=== PATIENT | male | born 1960 | race African-American/Black ===

== ENCOUNTER 2017-05-09 17:12 | Emergency (ER) | payer BC ==
[~2017-05-09] VITALS: Ht 177.8 cm; Wt 190.5 kg
[~2017-05-09 17:12] MED LIST changes: -ALB18R INH; -IPRA3AMP21 IH; -PRED20TA6 PO
[2017-05-09] MEDS ORDERED: ALBUTEROL/IPRATROPIUM 3 ML NEB NEB ONE ×2 (17:40→19:20)
[2017-05-09] MEDS ORDERED: predniSONE 20 MG TAB PO ONE (18:20)
--- NOTE | 2017-05-09 18:45 | ER Report ---
History and Physical Time Seen By MD: 17:30 Hx. of Stated Complaint: PT HAS COUGH, SPITING UP GREEN SPUTUM, URGENT CARE REPORTED LOW O2 SATS, GAVE PT o2 HPI/ROS CHIEF COMPLAINT: Cough, shortness of breath HISTORY OF PRESENT ILLNESS: Patient is a 57-year-old male who presents the ED with complaint of three-day history of cough and recent shortness of breath last 2 days. He states that he feels like he has the flu and he states that he just can't kick it. He has been taking some ngur-upn-cebulva cough medication with minimal relief. He states that he went into the urgent care today for evaluation and was told that his oxygen saturation was low. He did have a chest x-ray and labs completed which were essentially normal. He he states that he did have an influenza test there that was negative and states that he did have a d-dimer completed that was negative. He has no history of lung or heart issues. Patient has not noted any fever. REVIEW OF SYSTEMS: Constitutional: No fever, no chills. Eyes: No discharge. ENT: No sore throat. Cardiovascular: See history of present illness. No palpitations. Respiratory: See history of present illness. Gastrointestinal: No abdominal pain, no vomiting. Genitourinary: No hematuria. Musculoskeletal: No back pain. Skin: No rashes. Neurological: No headache. Allergies: Coded Allergies: No Known Drug Allergies (Verified , 09/16/09) Home Meds Active Scripts Losartan/Hydrochlorothiazide (LOSARTAN-HCTZ 100-25 MG TAB) 1 Each Tablet, 1 EACH PO QDAY, #90 TAB 4 Refills Prov:ELIF PLASCENCIA MD 02/22/17 Reported Medications Metformin Hcl (METFORMIN HCL ER) 1,000 Mg Tab.er.24, 1 TAB PO QDAY, TAB 09/15/16 Cpap (CPAP HOME) Inha 09/15/16 Tadalafil (CIALIS) 20 Mg Tablet, 20 MG PO PRN 09/15/16 Fish Oil/Dha/Epa (FISH OIL 1,200 MG FISH OIL) Unknown Strength Capsule, PO, CAPSULE 09/15/16 Multivitamin/Iron/Folic Acid (CENTRUM COMPLETE MULTIVIT TAB) Unknown Strength Tablet, PO 09/15/16 Allopurinol (ZYLOPRIM) 300 Mg Tablet, 300 MG PO QDAY, TAB 09/15/16 Reviewed Nurses Notes: Yes Old Medical Records Reviewed: Yes Smoking Status: Never Smoker Hx Substance Use Disorder: No Hx Alcohol Use: Yes (OCC) Constitutional Vital Sign - Last 24 Hours 05/09/17 05/09/17 05/09/17 05/09/17 17:18 17:51 17:51 17:54 Pulse 78 76 80 Resp 22 16 12 B/P (MAP) 125/100 Pulse Ox 82 93 O2 Delivery Room Air Nasal Cannula O2 Flow Rate 2.0 05/09/17 17:54 Pulse Ox 97 O2 Delivery Nasal Cannula O2 Flow Rate 2.0 Physical Exam General Appearance: The patient is alert, has no immediate need for airway protection and no signs of toxicity. Patient appears to be in no acute distress. Eyes: Pupils equal and round no pallor or injection. ENT, Mouth: Mucous membranes are moist. Respiratory: There are some mild intermittent wheezing appreciated bilaterally. No retractions appreciated. Cardiovascular: Regular rate and rhythm. Gastrointestinal: Abdomen is soft and non tender, no masses, bowel sounds normal. Skin: Warm and dry, no rashes. Musculoskeletal: Neck is supple non tender. Extremities are nontender, nonswollen and have full range of motion. DIFFERENTIAL DIAGNOSIS: After history and physical exam differential diagnosis was considered for shortness of breath including but not limited to pulmonary infectious process, COPD, asthma, pulmonary embolus and congestive heart failure. Medical Decision Making Data Points Laboratory Hematology Test 05/09/17 15:54 05/09/17 18:16 Troponin I < 0.012 ng/ml B-Type Natriuretic Peptide 24 pg/ml (0-100) Influenza Virus Type A (PCR) Negative (NEGATIVE) Influenza Virus Type B (PCR) Positive (NEGATIVE) Chemistry Test 05/09/17 15:54 05/09/17 18:16 Troponin I < 0.012 ng/ml B-Type Natriuretic Peptide 24 pg/ml (0-100) Influenza Virus Type A (PCR) Negative (NEGATIVE) Influenza Virus Type B (PCR) Positive (NEGATIVE) EKG/Imaging Imaging Reviewed chest x-ray from [facility] and report. Per radiology, patient has findings that are suggestive of potential COPD and pulmonary artery hypertension. ED Course/Re-evaluation ED Course Reviewed labs were completed urgent care and he has no leukocytosis. He does have a negative d-dimer and has slight elevation of liver enzymes. Will give patient DuoNeb now. Will also check troponin and BNP. He is not having any chest pain right now. Will also give him 60 mg by mouth prednisone. He was was placed on oxygen at urgent care and is currently wearing 2 L on nasal cannula. 05/09/2017 7:11:18 pm - patient was given another DuoNeb treatment. He is feeling much improved after these treatments. Removed him from his oxygen and he is doing well without oxygen on room air at 94% oxygen saturation. His phone and BMP are normal. He was positive for influenza B. Discussed with patient that we will send him home with nebulizer machine and have him use DuoNeb and albuterol inhaler as needed. We'll also place him on a prednisone burst. Advised that he will need to be watching his blood sugar is on his prednisone. Decision to Disposition Date: May 09, 2017 Decision to Disposition Time: 18:45 Depart Departure Latest Vital Signs Vital Signs Date Time Temp Pulse Resp B/P (MAP) Pulse Ox O2 Delivery O2 Flow Rate FiO2 05/09/17 17:54 97 Nasal Cannula 2.0 05/09/17 17:54 80 12 05/09/17 17:18 125/100 Impression: Primary Impression: Influenza B Condition: Improved Disposition: HOME OR SELF-CARE Referrals: RENETTA PHILLIP MD (PCP) New Scripts Prednisone (PREDNISONE) 20 Mg Tablet 20 MG PO BID, #10 TAB Prov: CHRISTIN CARLIN PA-C 05/09/17 Albuterol Sulfate (VENTOLIN HFA) 18 Gm Inh 2 PUFF INH Q4-6H Y for SHORTNESS OF BREATH, #1 INH Prov: CHRISTIN CARLIN PA-C 05/09/17 Ipratropium/Albuterol Sulfate (IPRAT-ALBUT 0.5-3(2.5) MG/3 ML) 3 Ml Ampul.neb 3 ML IH QID Y for prn, #1 BOX Prov: CHRISTIN CARLIN PA-C 05/09/17 Departure Forms: ER Transition Record, Home Oxygen, Nebulizer RX, Durable Medical Equipment-Oxygen: Nebulizer Reason for Use/Diagnosis: influenza B Start Date of the Order: May 09, 2017 Route of Administration (if applicable): Nasal Cannula Duration Units: Weeks ER Prescribing Physician's Name: Adan Carlin NPI Numbers for Local ER MDs: Donna [id number] Medications Reconciliation, Patient Portal Information Patient Instructions: Influenza (ED) Additional Instructions: Stay well-hydrated. Follow-up with primary care provider in 2-3 days. If having any worsening or concerning symptoms may return to the emergency department. CHRISTIN CARLIN PA-C May 09, 2017 18:45
[2017-05-09] MEDS ORDERED: IPRA3AMP21 IH (19:14)
[2017-05-09] MEDS ORDERED: PRED20TA6 PO (19:14)
[2017-05-09] MEDS ORDERED: ALB18R INH (19:14)
[2017-05-09 19:27] VITALS: BP 188/96
[2017-05-09] MEDS ORDERED: ALBUTEROL SULFATE 90 MCG/ACT 8.5 GM HNH INH PRN (19:40)
== END 2017-05-09 19:40 | disposition home or self-care (01) ==
LOC: ER 17:27
DX: J11.1 Influenza due to unidentified influenza virus with other respiratory manifestations (principal)
CPT/HCPCS: 83880; 84484; 87502; 94640; 99283; J7512; J7620

== ENCOUNTER → 2017-05-09 | Outpatient (REF) | payer BC ==
[~2017-05-09] MED LIST: ALB18R INH; ALL300 PO; ALLO-119 PO; AMLO1TAB78 PO; CEP500 PO; CPAP; FISH1CAP15 PO; IPRA3AMP21 IH; LOSA-54 PO; METF10002 PO; MULT-768 PO; PIOG1TAB15 PO; PRED20TA6 PO; TADA20TA33 PO
[2017-05-09 16:25] LABS: PLATELET COUNT, AUTOMATED 128 K/uL (150-450)
== END ==
PROVIDERS: ATTEND Family Medicine
DX: R09.02 Hypoxemia (principal)
CPT/HCPCS: 82040; 82247; 82310; 82374; 82435; 82565; 82947; 84075; 84132; 84155; 84295; 84450; 84460; 84520; 85025; 85379

== ENCOUNTER → 2017-05-14 | Outpatient (CLI) | payer BC ==
[~2017-05-14] MED LIST changes: +ALB18R INH; +AMLO-96 PO; +IPRA3AMP21 IH; +PRED20TA6 PO
--- NOTE | 2017-05-14 15:32 | EKG ---
FACILITY: [facility] PATIENT NAME: ALIX JONES : [id number] MR: [id number] V: [id number] EXAM DATE: ORDERING PHYSICIAN: GONZALEZ JARVIS TECHNOLOGIST: MECHE Test Reason : IRREGULAR RHYTHM Blood Pressure : / mmHG Vent. Rate : 088 BPM Atrial Rate : 088 BPM P-R Int : 180 ms QRS Dur : 110 ms QT Int : 384 ms P-R-T Axes : 069 -63 065 degrees QTc Int : 464 ms Normal sinus rhythm Left axis deviation Abnormal ECG Confirmed by CR MARQUEZ ([id number]) on 05/14/2017 11:24:28 PM Referred By: SIMONA Confirmed By:CR MARQUEZ
--- NOTE | 2017-05-14 15:39 | RADIOLOGY IMAGING REPORT ---
FACILITY: [facility] PATIENT NAME: Cheryl Bee : 1960 MR: [id number] V: [id number] EXAM DATE: ORDERING PHYSICIAN: GONZALEZ JARVIS TECHNOLOGIST: Location: [facility] - [place], [place] Patient: Cheryl Bee : 1960 Visit/Account:[id number] Date of Sevice: 05/14/2017 Chest 2 views: HISTORY: Cough, influenza. COMPARISON: 08/14/2009 FINDINGS: Frontal and lateral chest: Heart size is within normal limits. There is again noted to be p rominence of the main and left and right pulmonary arteries. This can be seen in setting of pulmonary hypertension. Alternatively, dilatation of the main pulmonary arteries can occur with pulmonic steno sis, clinically correlate. There is no infiltrate or pleural effusion. No pneumothorax. There is no e vidence of congestive heart failure. IMPRESSION: 1. No evidence of acute cardiomegaly pulmonary normality. 2. Prominent pulmonary trunk and main pulmonary arteries, this can be seen in the setting of pulmonar y hypertension. Similar findings can be seen with pulmonic stenosis. There is no significant change c ompared to the prior study. Report Dictated By: Leonor Jim MD at 05/14/2017 3:23 PM Report E-Signed By: Leonor Jim MD at 05/14/2017 3:33 PM [id number]
== END ==
LOC: RAD 14:58
PROVIDERS: ATTEND Nurse Practitioner Primary Care
DX: I28.8 Other diseases of pulmonary vessels (principal); R94.31 Abnormal electrocardiogram [ECG] [EKG]
CPT/HCPCS: 71046; 93005

== ENCOUNTER → 2017-06-01 | Outpatient (CLI) | payer BC ==
--- NOTE | 2017-06-01 15:36 | EKG ---
[facility] PATIENT NAME: ALIX JONES : [id number] MR: [id number] V: [id number] EXAM DATE: ORDERING PHYSICIAN: ELIF PLASCENCIA TECHNOLOGIST: MECHE Test Reason : IRREGULAR RYTHM Blood Pressure : / mmHG Vent. Rate : 112 BPM Atrial Rate : 112 BPM P-R Int : 176 ms QRS Dur : 100 ms QT Int : 352 ms P-R-T Axes : 068 251 064 degrees QTc Int : 480 ms Sinus tachycardia Abnormal ECG When compared with ECG of 14-MAY-2017 14:53, No significant change was found Confirmed by JONY PLASCENCIA ([id number]) on 06/02/2017 9:18:44 AM Referred By: THAIS Confirmed By:JONY PLASCENCIA
== END ==
LOC: RESP 14:46
PROVIDERS: ATTEND Internal Medicine
DX: I49.3 Ventricular premature depolarization (principal); R94.31 Abnormal electrocardiogram [ECG] [EKG]

== ENCOUNTER → 2017-07-21 | Outpatient (CLI) | payer BC ==
[2017-07-21 13:13] LABS: PLATELET COUNT, AUTOMATED 169 K/uL (150-450)
[2017-07-21 13:24] LABS: LDL CHOLESTEROL 80 mg/dl
== END ==
LOC: LAB 12:51
PROVIDERS: ATTEND Internal Medicine
DX: Z12.5 Encounter for screening for malignant neoplasm of prostate (principal); E11.9 Type 2 diabetes mellitus without complications; N18.3 Chronic kidney disease, stage 3 (moderate); J96.11 Chronic respiratory failure with hypoxia; E78.5 Hyperlipidemia, unspecified; E11.3293 Type 2 diabetes mellitus with mild nonproliferative diabetic retinopathy without macular edema, bilateral
CPT/HCPCS: 36415; 81001; 82040; 82247; 82310; 82374; 82435; 82465; 82565; 82947; 83036; 83718; 84075; 84132; 84153; 84155; 84295; 84443; 84450; 84460; 84478; 84520; 85025

== ENCOUNTER → 2017-08-11 | Outpatient (CLI) | payer BC | LOC: RESP 01:46 | PROVIDERS: ATTEND Internal Medicine | DX: R09.02 Hypoxemia (principal); I10 Essential (primary) hypertension; G47.33 Obstructive sleep apnea (adult) (pediatric); D75.1 Secondary polycythemia; J98.4 Other disorders of lung | CPT/HCPCS: 94060; 94726; 94729 ==

== ENCOUNTER → 2017-10-23 | Outpatient (CLI) | payer BC ==
[~2017-10-23] MED LIST changes: +IPRA3AMP10 IH; -IPRA3AMP21 IH
== END ==
LOC: RESP 19:51
PROVIDERS: ATTEND Internal Medicine
DX: G47.33 Obstructive sleep apnea (adult) (pediatric) (principal); G47.36 Sleep related hypoventilation in conditions classified elsewhere

== ENCOUNTER → 2017-11-15 | Outpatient (CLI) | payer BC ==
[~2017-11-15] MED LIST changes: +FLUT1AER INH
[2017-11-15 15:39] LABS: PLATELET COUNT, AUTOMATED 140 K/uL (150-450)
== END ==
LOC: LAB 15:16
PROVIDERS: ATTEND Internal Medicine
DX: G47.33 Obstructive sleep apnea (adult) (pediatric) (principal); R09.02 Hypoxemia; D75.1 Secondary polycythemia; I10 Essential (primary) hypertension; E11.9 Type 2 diabetes mellitus without complications; E66.9 Obesity, unspecified
CPT/HCPCS: 36415; 82040; 82247; 82310; 82374; 82435; 82565; 82947; 84075; 84132; 84155; 84295; 84450; 84460; 84520; 85025

== ENCOUNTER → 2017-12-15 | Outpatient (CLI) | payer BC ==
[~2017-12-15] MED LIST changes: +AMLO-111 PO; -AMLO-96 PO
== END ==
LOC: US 02:13
PROVIDERS: ATTEND Internal Medicine
DX: I51.7 Cardiomegaly (principal)
CPT/HCPCS: 93306

== ENCOUNTER → 2017-12-31 | Outpatient (CLI) | payer BC ==
[2017-12-31 10:28] LABS: PLATELET COUNT, AUTOMATED 149 K/uL (150-450)
[2017-12-31 10:42] LABS: LDL CHOLESTEROL 80 mg/dl
== END ==
LOC: LAB 09:52
PROVIDERS: ATTEND Internal Medicine
DX: G47.33 Obstructive sleep apnea (adult) (pediatric) (principal); D75.1 Secondary polycythemia; I10 Essential (primary) hypertension; E11.9 Type 2 diabetes mellitus without complications; E66.9 Obesity, unspecified
CPT/HCPCS: 36415; 81001; 82040; 82247; 82310; 82374; 82435; 82465; 82565; 82947; 83036; 83718; 84075; 84132; 84155; 84295; 84443; 84450; 84460; 84478; 84520; 84550; 85025

== ENCOUNTER → 2018-07-11 | Outpatient (CLI) | payer BC ==
[~2018-07-11] MED LIST changes: -AMLO-111 PO; +AMLO-125 PO
[2018-07-11 12:11] LABS: PLATELET COUNT, AUTOMATED 168 K/uL (150-450)
[2018-07-11 12:28] LABS: LDL CHOLESTEROL 85 mg/dl
== END ==
LOC: LAB 11:39
PROVIDERS: ATTEND Internal Medicine
DX: G47.33 Obstructive sleep apnea (adult) (pediatric) (principal); I12.9 Hypertensive chronic kidney disease with stage 1 through stage 4 chronic kidney disease, or unspecified chronic kidney disease; E11.9 Type 2 diabetes mellitus without complications; N18.3 Chronic kidney disease, stage 3 (moderate); J96.11 Chronic respiratory failure with hypoxia; E78.5 Hyperlipidemia, unspecified; Z12.5 Encounter for screening for malignant neoplasm of prostate
CPT/HCPCS: 36415; 81001; 82040; 82043; 82247; 82310; 82374; 82435; 82465; 82565; 82947; 83036; 83718; 84075; 84132; 84153; 84155; 84295; 84443; 84450; 84460; 84478; 84520; 84550; 85025